=== PATIENT | female | born 1990 | race Caucasian/White ===

== ENCOUNTER 2020-01-15 13:39 | Emergency (ER) | payer OTHER ==
[~2020-01-15] VITALS: Ht 177.8 cm; Wt 104.3 kg
[~2020-01-15 13:39] MED LIST: ACET325; ACYC200 PO; CEPH500; CEPH500 PO; CRUTCH4 USE; CYCL10 PO; FLUC150A PO; HYDACE25S PR; HYDACE5 PO; IBUHYD PO; IBUP400; IBUP800 PO; LEVSOD100; MEBE100 PO; OXYACE5T PO; PERM5TC TOP; PROM25 PO; Percocet 5-3251 EACH PO; SULTRIDS PO; SUMA20NI; Zofran Odt8 MG SL; Zofran4 MG PO
[2020-01-15] MEDS ORDERED: Zithromax250 MG PO (14:58)
== END 2020-01-15 15:08 | disposition home or self-care (01) ==
LOC: ER 13:39
DX: R05 Cough (principal); R09.81 Nasal congestion; R07.0 Pain in throat; F17.210 Nicotine dependence, cigarettes, uncomplicated
CPT/HCPCS: 87081; 87147; 87430; 99283

== ENCOUNTER → 2023-01-11 | Outpatient (CLI) | payer OTHER ==
[~2023-01-11] MED LIST changes: +Zithromax250 MG PO
== END ==
LOC: LAB SHORT 17:31 → LAB 17:31
DX: N39.0 Urinary tract infection, site not specified (principal)
CPT/HCPCS: 87077; 87086; 87186

== ENCOUNTER 2024-01-29 05:07 | Inpatient (IN) | payer OTHER ==
[2024-01-29] VITALS (14 sets, daily range): BP systolic 127–197; BP diastolic 75–98
[~2024-01-29] VITALS: Ht 177.8 cm; Wt 109.1 kg
[2024-01-29] MEDS ORDERED: Misoprostol 200 MCG Tab BC PRN ×2 (05:25→07:05)
[2024-01-29] MEDS ORDERED: Oxytocin 10 Unit / ML Vial IM PRN (05:25)
[2024-01-29] MEDS ORDERED: OXYTOCIN/RINGER'S LACTATE 500 ML IV PRN (05:25)
[2024-01-29] MEDS ORDERED: Carboprost Tromethamine 250 MCG/ML 1ML Amp IM PRN ×2 (05:25→06:20)
[2024-01-29] MEDS ORDERED: Ondansetron HCl 2 MG / ML 2ML Vial IV PRN (05:25)
[2024-01-29] MEDS ORDERED: Tranexamic Acid 100 ML IV SCH (05:25)
[2024-01-29] MEDS ORDERED: Acetaminophen 500 MG Tab PO PRN (05:25)
[2024-01-29] MEDS ORDERED: Methylergonovine Maleate 0.2MG / ML 1ML Amp IM PRN ×2 (05:25→06:20)
[2024-01-29] MEDS ORDERED: Misoprostol 200 MCG Tab PR PRN ×2 (05:25→06:20)
[2024-01-29] MEDS ORDERED: Calcium Carbonate 500 MG Tab Chew PO SCH (05:30)
[2024-01-29] MEDS ORDERED: Benzocaine Topical Anesthetic Spray 60GM TOP PRN (06:20)
[2024-01-29] MEDS ORDERED: Acetaminophen 325 MG TABLET PO PRN (06:20)
[2024-01-29] MEDS ORDERED: Lactated Ringer's 1,000 ML IV SCH (06:20)
[2024-01-29 06:25] LABS: BASOPHILS ABSOLUTE AUTO 0.07 K/mm3 (0.00-0.23); BASOPHILS PERCENT AUTO 0 % (0-2); EOSINOPHILS ABSOLUTE AUTO 0.01 K/mm3 (0.00-0.68); EOSINOPHILS PERCENT AUTO 0 % (0-6); Hematocrit 32.6 % (33.0-51.0); Hemoglobin 11.2 g/dL (11.5-16.0); IMMATURE GRAN ABSOLUTE AUTO 0.26 K/mm3 (0.00-0.10); IMMATURE GRAN PERCENT AUTO 1 % (0-1); LYMPHOCYTES ABSOLUTE AUTO 1.18 K/mm3 (0.84-5.20); LYMPHOCYTES PERCENT AUTO 4 % (21-46); MONOCYTES ABSOLUTE AUTO 1.34 K/mm3 (0.16-1.47); MONOCYTES PERCENT AUTO 5 % (4-13); Mean Corpuscular HGB 28.1 pg (26.0-34.0); Mean Corpuscular HGB Conc 34.4 g/dL (31.5-36.5); Mean Corpuscular Volume 82 fL (80-100); NEUTROPHILS ABSOLUTE AUTO 26.89 K/mm3 (1.96-9.15); NEUTROPHILS PERCENT AUTO 90 % (41-73); Platelet Count 418 K/mm3 (150-400); RDW Coefficient Variation 13.4 % (11.7-14.2); RDW Standard Deviation 39.8 fL (35.1-46.3); Red Blood Cell Count 3.98 M/mm3 (3.80-5.20); White Blood Cell Count 29.75 K/mm3 (4.00-11.30)
[2024-01-29] MEDS ORDERED: Ibuprofen 400 MG Tab PO PRN ×2 (06:25→15:30)
[2024-01-29] MEDS ORDERED: Witch Hazel/Glycerin PADS TOP PRN (06:25)
[2024-01-29] MEDS ORDERED: Misoprostol 100 MCG Tab PO PRN (06:25)
[2024-01-29] MEDS ORDERED: FLU VACC TS2024-25(6MOS UP)/PF 45 MCG/0.5 ML SYRINGE IM PRN (06:25)
[2024-01-29] MEDS ORDERED: OxyCODONE HCL 5 MG TAB PO PRN (06:25)
[2024-01-29] MEDS ORDERED: Labetalol HCL 5 MG/ML 4ML Injection (Single Dose) ONE (07:06)
--- NOTE | 2024-01-29 07:09 | NUR ---
PT ARRIVED VIA AMBULANCE AT APPROX 0500 AFTER DELIVERING HER BABY AT HOME AT 0450. PT DELIVERS PLACENTA SPONTANEOUSLY AT [address] DIALLO IS CALLED TO THE BEDSIDE TO ASSESS UNASSIGNED PT.
[2024-01-29] MEDS ORDERED: Labetalol HCL 5 MG/ML 4ML Injection (Single Dose) IV ONE (07:10)
--- NOTE | 2024-01-29 07:13 | NUR ---
ASSUMED CARE FROM MARGARITA Ch RN AT 0705. NB SWADDLED IN CRIB. PT IS SLEEPING AND AROUSABLE, BUT APPEARS VERY FATIGUED. BP REPORTED TO BE IN THE 160/90S. HOMES AT BEDSIDE AT 0705 AND BP IS 164/98. ORDERS FOR TIME DOSE OF 20MG IV LABETOLOL. YOEL REPORTS THAT ELEVATED BP IS LIKELY RELATED TO METHERGEN BEING GIVEN. RN ASKS PT ABOUT WHAT TIME HER WATER BROKE WITH YOEL IN ROOM. PT FALLS BACK ASLEEP BEFORE BEING ABLE TO ANSWER THE QUESION. RN AWAKES PT AGAIN AND ASKS ABOUT SROM TIME. PT REPORTS "AROUND 10 OR 1030" RN CONFIRMS THAT THIS WAS YESTERDAY, 01/28/24. PT SAYS "YEAH" PT BACK ASLEEP QUICKLY.
[2024-01-29] MEDS ORDERED: CeFAZolin Sodium 2,000 MG in NS 100 ML IV ONE (07:20)
[2024-01-29 08:55] LABS: Albumin, Blood 2.5 g/dL (3.4-5.0); Albumin/Globulin Ratio 0.6 (0.8-1.8); Bilirubin, Total 0.4 mg/dL (0.1-1.0); Bun/Creatinine Ratio 10.2 (12.0-20.0); Calcium, Blood 9.2 mg/dL (8.5-10.1); Creatinine, Blood 0.59 mg/dL (0.40-1.00); Potassium, Blood 4.3 mmol/L (3.5-5.5); Total Protein, Blood 6.5 g/dL (6.4-8.2)
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
[2024-01-29] MEDS ORDERED: Prenatal Vit/FE Fumarate/FA 1 Tab PO SCH (09:00)
[2024-01-29] MEDS ORDERED: Nicotine 14 MG PATCH TOP SCH (09:00)
[2024-01-29 09:09] LABS: U Amphetamine Screen DETECTED; U Barbituate Screen Not Detected; U Benzodiazapine Screen Not Detected; U Buprenorphine Screen Not Detected; U Cannabinoids Screen DETECTED; U Cocaine Screen Not Detected; U Methadone Screen Not Detected; U Methamphetamine Screen DETECTED; U Opiates Screen Not Detected; U Oxycodone Screen Not Detected; U Phencyclidine Screen Not Detected
[2024-01-29 09:29] LABS: Creatinine, Urine Random 42.3 mg/dL (27.00-270.00); Protein, Urine Random 44.4 mg/dL (0.0-11.9)
[2024-01-29] MEDS ORDERED: Methylergonovine Maleate 0.2MG / ML 1ML Amp XX ONE (09:45)
[2024-01-29] MEDS ORDERED: Ketorolac Tromethamine 30mg Vial IV SCH (12:00)
[2024-01-29 12:42] LABS: Chlamydia Trachomatis Urine NOT DETECTED (NOT DETECT); Neisseria Gonorrhoea Urine NOT DETECTED (NOT DETECT)
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
[2024-01-29] MEDS ORDERED: IBUP800 PO (15:28)
--- NOTE | 2024-01-29 17:34 | NUR ---
ROSA JUST FINISHED TALKING WITH PATIENT. PLAN IN PROGRESS AND WILL BE FOLLOW UP AT [facility]. MOTHER STATES HER SISTER IS GOING TO TAKE HER UP TO [place]. ALEXANDERARASHLEY TEACHING DONE. VERBALIZES UNDERSTANDING OF DC INSTRUCTIONS AND FOLLW UP APPOINTMENTS. NO QUESTIONS OR CONCERNS. EATING DINNER AND WILL BE DISCHARGED WHEN BABY LEAVES.
[2024-01-30] MEDS ORDERED: Ibuprofen 400 MG Tab PO PRN (06:00)
[2024-02-01 08:55] LABS: HEPATITIS B SURFACE ANTIBODY <3.10 IU/L
[2024-02-01 09:01] LABS: HEPATITIS B SURFACE ANTIGEN Negative (Negative)
[2024-02-01 09:58] LABS: HIV 1,2 COMBO ANTIGEN/ANTIBODY Negative (Negative)
--- NOTE | 2024-02-01 13:01 | NUR ---
POST FOLLOW UP APPT PHONE CALL: TRANSPORTED TO [facility] FOR BILIOUS EMESIS. MOM REPORTS THAT IS NOW OFF CPAP, PASSING STOOLS, AND DOING WELL. NO ETA FOR DISCHARGE YET. SHE REPORTS THAT SHE IS DOING WELL, PAIN IS CONTROLLED, MILK IS NOT IN BUT SHE IS PLANNING ON CONTINUING BOTTLE FEEDING. EDUCATION PROVIDED ON DRYING UP MILK SUPPLY IF NEEDED. 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 EDUCATED HER ON WATCHING FOR CONTINUED BLEEDING AND TO CONTACT OB IF THE CLOTS CONTINUE. SHE SAID HER BLEEDING IS MINIMAL BESIDES THE CLOTS AND SHE HAS NOT HAD ANY CLOTS SINCE YESTERDAY AFTERNOON. ENCOURAGED HER TO CALL DR DIALLO OFFICE AND TALK TO THEM ABOUT THE CLOTS IF SHE FELT NECESSERY AND TO SCHEDULE HER PP FOLLOW UP APPT WITH HER OFFICE.
== END 2024-01-29 17:55 | disposition home or self-care (01) | DRG 776 ==
LOC: OBS 05:07 → BC 05:09 → OBS 05:16 → BC 05:19
PROVIDERS: ADMIT Family Medicine
DX: O72.1 Other immediate postpartum hemorrhage (principal); O99.335 Smoking (tobacco) complicating the puerperium; F17.210 Nicotine dependence, cigarettes, uncomplicated; O16.5 Unspecified maternal hypertension, complicating the puerperium
CPT/HCPCS: 36415; 59414; 80053; 82570; 84156; 85025; 86592; 86762; 86850; 86900; 86901; 87340; 87389; 87491; 87591; A9270; J0690; J2210; J2590